=== PATIENT | female | born 1980 | race Caucasian/White ===

== ENCOUNTER 2016-10-07 11:47 | Emergency (ER) | payer OTHER ==
[~2016-10-07] VITALS: Ht 167.6 cm; Wt 104.8 kg
[~2016-10-07 11:47] MED LIST: PREN-156 PO
[2016-10-07 12:00] VITALS: BP 117/77
--- NOTE | 2016-10-07 12:05 | NUR ---
PATIENT TO ER BED 4.
--- NOTE | 2016-10-07 12:07 | NUR ---
PT CAME TO ER DUE TO RIGHT HAND PAIN X1 DAY S/P PUNCHING WALL.RT HAND IS SWOLLEN .PT STATES SHE TOOK MOTRIN BUT DID NOT HELP HER;PT AAOX 4;UNLABORED BREATHING;SKIN WARM TO TOUCH.NO ACUTE DISTRESS NOTED AT THIS TIME;DENIES ANY MEDICAL HX;DENIES CP/SOB/N/V/D.HOB ELEVATED;NEEDS ATTENDED;SAFETY PRECAUTION DONE;MD MADE AWARE OF PT'S CONDITION.
--- NOTE | 2016-10-07 12:11 | NUR ---
PT WENT TO XRAY ACCOMPANIED BY MEDIA MANAGER.
--- NOTE | 2016-10-07 12:28 | NUR ---
DR VIZCARRA AT BEDSIDE
[2016-10-07 13:00] VITALS: BP 110/70
== END 2016-10-07 13:00 | disposition home or self-care (01) ==
LOC: MED 11:47
DX: S62.316A Displaced fracture of base of fifth metacarpal bone, right hand, initial encounter for closed fracture (principal); W22.01XA Walked into wall, initial encounter; Y93.89 Activity, other specified; Y92.89 Other specified places as the place of occurrence of the external cause; Y99.8 Other external cause status
CPT/HCPCS: 29125; 73130; 99284; Q0092

== ENCOUNTER 2017-10-15 19:50 | Observation (INO) | payer OTHER ==
[~2017-10-15] VITALS: Ht 165.1 cm; Wt 104.3 kg
[2017-10-15] MEDS ORDERED: NALBUPHINE 10 MG/ML AMP IM SCH (20:30)
[2017-10-15] MEDS ORDERED: cefTRIAXone 1,000 MG in LIDOCAINE MPF 1% - **ER/OR** 2.1 ML IM SCH (20:30)
[2017-10-15] MEDS ORDERED: LIDOCAINE MPF 1% - **ER/OR** 5 ML ONE (20:40)
[2017-10-15] MEDS ORDERED: NALBUPHINE HYDROCHLORIDE 10 MG/ML VIAL ONE (20:40)
[2017-10-15] MEDS ORDERED: cefTRIAXone 1,000 MG VIAL ONE (20:40)
[2017-10-15 21:05] VITALS: BP 115/64
[2017-10-15] MEDS ORDERED: PREN-546 PO (21:12)
== END 2017-10-15 21:20 | disposition home or self-care (01) ==
LOC: MLD 19:50
PROVIDERS: ADMIT Obstetrics & Gynecology; ATTEND Obstetrics & Gynecology
DX: O99.89 Other specified diseases and conditions complicating pregnancy, childbirth and the puerperium (principal); M54.9 Dorsalgia, unspecified; Z3A.19 19 weeks gestation of pregnancy
CPT/HCPCS: G0378; J0696; J2001; J2300

== ENCOUNTER 2017-11-01 18:20 | Observation (INO) | payer OTHER ==
[~2017-11-01] VITALS: Ht 165.1 cm; Wt 104.8 kg
[~2017-11-01 18:20] MED LIST changes: -PREN-156 PO; +PREN-546 PO
[2017-11-01 18:38] VITALS: BP 114/65
[2017-11-01] MEDS ORDERED: ACETAMINOPHEN 650 MG/20.3 ML UDC PO STA (19:44)
[2017-11-01] MEDS ORDERED: ACETAMINOPHEN 325 MG TAB ONE (19:49)
== END 2017-11-01 22:54 | disposition home or self-care (01) ==
LOC: MLD 18:20
PROVIDERS: ADMIT Obstetrics & Gynecology; ATTEND Obstetrics & Gynecology
DX: O99.89 Other specified diseases and conditions complicating pregnancy, childbirth and the puerperium (principal); M54.5 Low back pain; Z3A.23 23 weeks gestation of pregnancy
CPT/HCPCS: 81000; G0378

== ENCOUNTER 2017-12-10 12:30 | Observation (INO) | payer OTHER ==
[~2017-12-10] VITALS: Ht 167.6 cm; Wt 90.7 kg
[2017-12-10 12:59] VITALS: BP 111/66
[2017-12-10] MEDS ORDERED: cefTRIAXone 1,000 MG in LIDOCAINE MPF 1% - **ER/OR** 2.1 ML IM SCH (14:26)
== END 2017-12-10 15:15 | disposition home or self-care (01) ==
LOC: MLD 12:30
PROVIDERS: ADMIT Obstetrics & Gynecology; ATTEND Obstetrics & Gynecology
DX: O26.853 Spotting complicating pregnancy, third trimester (principal); O26.893 Other specified pregnancy related conditions, third trimester; R10.30 Lower abdominal pain, unspecified; O99.89 Other specified diseases and conditions complicating pregnancy, childbirth and the puerperium; M54.9 Dorsalgia, unspecified; Z3A.28 28 weeks gestation of pregnancy
CPT/HCPCS: 76805; 81000; 96372; G0378; J0696; J2001; Q0092

== ENCOUNTER 2018-02-18 13:48 | Inpatient (IN) | payer OTHER ==
[~2018-02-18] VITALS: Ht 167.6 cm; Wt 110.7 kg
[2018-02-18 15:32] LABS: ALBUMIN 2.1 g/dL (3.4-5.0); BILIRUBIN,DIRECT 0.1 mg/dL (0.0-0.3); TOTAL BILIRUBIN 0.3 mg/dL (0.0-1.0)
[2018-02-18] MEDS ORDERED: OXYTOCIN 20 UNITS in LACTATED RINGERS 1,000 ML IV SCH (16:57)
[2018-02-18] MEDS ORDERED: LACTATED RINGERS 1,000 ML IV SCH (16:57)
[2018-02-18] MEDS ORDERED: OXYTOCIN 10 UNITS/ML VIAL IM SCH (17:00)
[2018-02-18] MEDS ORDERED: NALBUPHINE 10 MG/ML AMP IVP PRN (17:00)
[2018-02-18] MEDS ORDERED: PROMETHAZINE 25 MG/ML VIAL IVP PRN (17:00)
[2018-02-18 17:15] LABS: HEMATOCRIT 33.9 % (36-48); HEMOGLOBIN 10.8 g/dL (12.0-16.0); MEAN CORPUSCULAR HEMOGLOBIN 27 pg (27-31); MEAN CORPUSCULAR HGB CONC 32 g/dL (33-37); MEAN CORPUSCULAR VOLUME 84.4 fL (80-94); PLATELET COUNT (AUTO) 249 K/uL (140-450); RED BLOOD CELL COUNT(AUTO) 4.02 MIL/uL (4.20-5.40); RED CELL DISTRIBUTION WIDTH 16.8 % (11.6-13.7); WHITE BLOOD COUNT (AUTO) 4.2 K/uL (4.8-10.8)
[2018-02-18 17:16] LABS: BASOPHILS % (AUTO) 0.2 % (0.0-2.0); EOSINOPHILS % (AUTO) 0.8 % (0.0-4.0); LYMPHOCYTES # (AUTO) 1.3 K/uL (2.5-16.5); MONOCYTES # (AUTO) 0.2 K/uL (0.8-1.0); MONOCYTES % (AUTO) 5.6 % (1.7-9.3); NEUTROPHILS # (AUTO) 2.6 K/uL (1.8-7.7); NEUTROPHILS % (AUTO) 62.4 % (42.2-75.2)
[2018-02-18 17:30] LABS: ANION GAP 17.9 (8-16); CARBON DIOXIDE 19.5 mmol/L (21-32); CREATININE 1.1 mg/dL (0.6-1.3); POTASSIUM 3.4 mmol/L (3.5-5.1)
[2018-02-18 17:46] LABS: TOTAL BILIRUBIN 0.3 mg/dL (0.0-1.0)
[2018-02-18] MEDS ORDERED: MISOPROSTOL 25 MCG TAB VG PRN (18:00)
[2018-02-18 18:07] VITALS: BP 119/73
[2018-02-18 18:42] LABS: BILIRUBIN,URINE NEGATIVE (NEGATIVE); BLOOD, URINE NEGATIVE (NEGATIVE); COLOR,URINE YELLOW (YELLOW); LEUKOCYTE ESTERASE ,URINE 1+ (NEGATIVE); NITRITE, URINE NEGATIVE (NEGATIVE); UGLUCOSE NEGATIVE (NEGATIVE)
[2018-02-18 19:10] LABS: APPEARANCE,URINE HAZY (CLEAR)
[2018-02-18 19:58] LABS: RBC,URINE NONE SEEN /HPF (0-5); WBC,URINE 0-5 (RARE) /HPF (0-5)
[2018-02-18] MEDS ORDERED: ROPIVACAINE 0.2%/NS PREMIX 250 ML EPI SCH (23:05)
[2018-02-18] MEDS ORDERED: ROPIVACAINE 0.2%/NS PREMIX 250 ML EPI ONE (23:20)
[2018-02-19] MEDS ORDERED: OXYTOCIN 20 UNITS/LR PREMIX 1,000 ML IV ONE (01:16)
[2018-02-19] MEDS ORDERED: OXYTOCIN 10 UNITS/ML VIAL ONE (05:40)
[2018-02-19] MEDS ORDERED: oxyCODONE/APAP 5/325 MG 1 TAB TAB PO PRN (06:25)
[2018-02-19] MEDS ORDERED: HYDROcodone/APAP 5/325 MG 1 TAB TAB PO PRN (06:25)
[2018-02-19] MEDS ORDERED: IBUPROFEN 800 MG TAB PO PRN (06:25)
[2018-02-19] MEDS ORDERED: METHYLERGONOVINE 0.2 MG/ML AMP IM PRN (06:25)
[2018-02-19] MEDS ORDERED: METHYLERGONOVINE 0.2 MG TAB PO PRN (06:25)
[2018-02-19] MEDS ORDERED: MEASLES, MUMPS, AND RUBELLA 1 VIAL SQVAC PRN (06:25)
[2018-02-19] MEDS ORDERED: TEMAZEPAM 15 MG CAP PO PRN (06:25)
[2018-02-19] MEDS ORDERED: OXYTOCIN 10 UNITS/ML VIAL IM PRN (06:25)
--- NOTE | 2018-02-19 10:56 | NUR ---
PATIENT HAS BEEN SCREENED AND CATEGORIZED LOW NUTRITION RISK. PATIENT WILL BE SEEN WITHIN 7 DAYS OF ADMISSION. 02/25/[address]
[2018-02-19] MEDS ORDERED: DOCUSATE SOD/SENNA 50/8.6 MG 1 TAB PO SCH (21:00)
[2018-02-20 06:20] LABS: HEMATOCRIT 35.8 % (36-48); HEMOGLOBIN 11.6 g/dL (12.0-16.0)
[2018-02-20] MEDS ORDERED: DOCUSATE SOD/SENNA 50/8.6 MG 1 TAB PO SCH (21:00)
== END 2018-02-20 16:45 | disposition home or self-care (01) | DRG 560 ==
LOC: MLD 13:48 → OBSVTOIN 16:46 → MLD 20:43 → MFCC 02-19 09:47
PROVIDERS: ADMIT Obstetrics & Gynecology; ATTEND Obstetrics & Gynecology
PROC: 10E0XZZ Delivery of Products of Conception, External Approach (ICD-10-PCS; principal; 2018-02-19)
PROC: 3E0R3BZ Introduction of Anesthetic Agent into Spinal Canal, Percutaneous Approach (ICD-10-PCS; 2018-02-19)
PROC: 00HU33Z Insertion of Infusion Device into Spinal Canal, Percutaneous Approach (ICD-10-PCS; 2018-02-19)
DX: O99.214 Obesity complicating childbirth (principal); E66.01 Morbid (severe) obesity due to excess calories; Z68.39 Body mass index [BMI] 39.0-39.9, adult; Z3A.37 37 weeks gestation of pregnancy; Z37.0 Single live birth
CPT/HCPCS: G0378 ×3; 36415; 51702; 59025; 59200; 59409; 76819; 80053; 80076; 81001; 85018; 85025; 86592; 86886; 86900; 86901; 87086; J2590; J2795; J7120; Q0092

== ENCOUNTER 2018-07-26 13:52 | Emergency (ER) | payer SELFPAY ==
[~2018-07-26] VITALS: Ht 167.6 cm; Wt 97.7 kg
[2018-07-26 14:05] VITALS: BP 121/75
--- NOTE | 2018-07-26 14:15 | NUR ---
PT. BIB SELF WITH C/O LOWER ABDOMINAL CRAMPING PAIN, HEAD ACHE, NAUSEA 01/29 X 2 WKS; - VAG BLEED, DIZZINESS; PER PT - PREG TEST TAKEN YESTERDAY; LMP 06/19/2018; A1 L:7. PT. STATES " I HAVE BEEN HAVING THIS CRAMPING SO MY BOSS TOLD ME TODAY, THAT I HAVE TO GET CHECKED". ER MD MADE AWARE. RR EVEN AND UNLABORED. SAFETY PRECAUTIONS IMPLEMENTED. WILL CONTINUE TO MONITOR.
--- NOTE | 2018-07-26 14:51 | NUR ---
Patient being evaluated by physician at bedside.
--- NOTE | 2018-07-26 15:22 | NUR ---
PT. RESTING COMFORTABLY IN BED, VSS. WILL CONTINUE TO MONITOR.
--- NOTE | 2018-07-26 15:41 | NUR ---
ULTRASOUND AT BEDSIDE AT THIS TIME
[2018-07-26 15:46] LABS: APPEARANCE,URINE TURBID (CLEAR); BILIRUBIN,URINE NEGATIVE (NEGATIVE); BLOOD, URINE NEGATIVE (NEGATIVE); COLOR,URINE YELLOW (YELLOW); LEUKOCYTE ESTERASE ,URINE 2+ (NEGATIVE); NITRITE, URINE NEGATIVE (NEGATIVE); UGLUCOSE NEGATIVE (NEGATIVE)
[2018-07-26 16:19] LABS: RBC,URINE NONE SEEN /HPF (0-5)
[2018-07-26 16:57] VITALS: BP 120/78
--- NOTE | 2018-07-26 16:57 | NUR ---
Patient discharged with v/s stable. Written and verbal after care instructions given and explained. Patient alert, oriented and verbalized understanding of instructions. Carried with steady gait. All questions addressed prior to discharge. ID band removed. Patient advised to follow up with PMD. Rx of CEPHALAZIN 500MG, DIFLUCAN 150MG given. Patient educated on indication of medication including possible reaction and side effects. Opportunity to ask questions provided and answered.
== END 2018-07-26 16:57 | disposition home or self-care (01) ==
LOC: MED 13:52
DX: N39.0 Urinary tract infection, site not specified (principal); N83.202 Unspecified ovarian cyst, left side
CPT/HCPCS: 76830; 81001; 81025; 87086; 99284; Q0092

== ENCOUNTER 2018-12-20 23:24 | Emergency (ER) | payer OTHER ==
[~2018-12-20] VITALS: Ht 167.6 cm; Wt 86.2 kg
[2018-12-20 23:27] VITALS: BP 141/87
--- NOTE | 2018-12-20 23:27 | NUR ---
Pt taken to bed 12.
--- NOTE | 2018-12-20 23:42 | NUR ---
DR. GAGE BEDSIDE EVALUATING PT
[2018-12-20] MEDS ORDERED: KETOROLAC 60 MG/2 ML VIAL IM ONE (23:50)
--- NOTE | 2018-12-20 23:59 | NUR ---
38 Y/O F W/C/O R SHOULDER PAIN S/P BEING HIS WITH A WATER BOTTLE AT 1830 TONIGHT. PT ALSO REPORTS BROWN VAGINAL DISCHARGE TODAY. +CMS. FULL ROM. CAP REFILL<3. -ECCHYMOSIS. PT DENIES N/V/D; SKIN IS INTACT, PINK/WARM/DRY; AAOX4, PERRL, WITH EVEN AND STEADY GAIT; PT DENIES ANY FEVER, CP, SOB, OR COUGH AT THIS TIME; PT STATES 7/10 PAIN AT THIS TIME; VSS; PATIENT POSITIONED FOR COMFORT; HOB ELEVATED; BEDRAILS UP X2; BED DOWN.
[2018-12-21 00:28] VITALS: BP 135/85
== END 2018-12-21 00:29 | disposition home or self-care (01) ==
LOC: MED 23:24
DX: M25.511 Pain in right shoulder (principal); M54.5 Low back pain; N93.9 Abnormal uterine and vaginal bleeding, unspecified; W22.8XXA Striking against or struck by other objects, initial encounter; Y93.89 Activity, other specified; Y92.89 Other specified places as the place of occurrence of the external cause; Y99.8 Other external cause status
CPT/HCPCS: 81002; 81025; 96372; 99283; J1885

== ENCOUNTER 2019-04-06 01:01 | Emergency (ER) | payer OTHER ==
[~2019-04-06] VITALS: Ht 165.1 cm; Wt 85.7 kg
[2019-04-06 01:05] VITALS: BP 130/80
--- NOTE | 2019-04-06 01:08 | NUR ---
TO LOBBY A/W BED AMBULATORY
--- NOTE | 2019-04-06 03:15 | NUR ---
PT AMBULATED TO BED 12 WITH STEADY GAIT.
--- NOTE | 2019-04-06 03:20 | NUR ---
38 YO F C/O 8/10 THROBBING LOWER RIGHT LEG PAIN X 2 WEEKS S/P MECHANICAL FALL. PT STATES SHE SLIPPED AND FELL WHILE WALKING ON ROCKS IN A [place]. PT STATES ENTIRE LEG WAS BRUISED BUT HAS HEALED SINCE. LOWER RIGHT LEG HOWEVER HAS REDNESS, SWELLING AND NO SIGN OF HEALING. PT STATES SHE HAS BEEN TAKING MOTRIN WITH LITTLE RELIEF. DENIES FEVER, N/V. -- PT AWAKE, A/O X 4, CALM, COOPERATIVE. BEHAVIOR AGE APPROPRIATE. -- SKIN PINK, WARM, DRY. BREATHING EVEN, UNLABORED. PMH-- DENIES
--- NOTE | 2019-04-06 05:43 | NUR ---
Dr. Schmid evaluating patient at bedside.
[2019-04-06 06:06] VITALS: BP 122/75
--- NOTE | 2019-04-06 06:06 | NUR ---
Patient discharged with v/s stable. Written and verbal after care instructions given and explained. Patient alert, oriented and verbalized understanding of instructions. Ambulatory with steady gait. All questions addressed prior to discharge. ID band removed. Patient advised to follow up with PMD. Rx of [place], Motrin, Prednisone, Keflex given. Patient educated on indication of medication including possible reaction and side effects. Opportunity to ask questions provided and answered.
== END 2019-04-06 06:06 | disposition home or self-care (01) ==
LOC: MED 01:01
DX: L03.115 Cellulitis of right lower limb (principal)
CPT/HCPCS: 99283

== ENCOUNTER 2019-04-15 07:50 | Emergency (ER) | payer OTHER ==
[~2019-04-15] VITALS: Ht 165.1 cm; Wt 63.5 kg
--- NOTE | 2019-04-15 07:54 | NUR ---
Patient ambulated to bed 12. RN evaluating patient at bedside.
[2019-04-15 08:01] VITALS: BP 122/77
--- NOTE | 2019-04-15 08:01 | NUR ---
PT BIB SELF C/O LT LEG PAIN X1 WEEK S/P MECHANICAL FALL. PT REPORTS STINGING THROBING PAIN AT 7/10 THAT INCREASES IN DEPENDENT POSITION, ALLEVIAITED W/ ELEVATION. PT REPORTS TRIPPING OVER A ROCK AND LANDING ON HER [place] ON ANOTHER ROCK. PT SEEN HERE ON 04/05/19, RECIEVE ABX AND IBUPROFEN. VSS. ER TO SEE PT. MEDHX:DENIES RX:DENIES
[2019-04-15 09:11] VITALS: BP 123/68
--- NOTE | 2019-04-15 09:11 | NUR ---
Patient discharged with v/s stable. Written and verbal after care instructions given and explained. Patient alert, oriented and verbalized understanding of instructions. Ambulatory with steady gait. All questions addressed prior to discharge. ID band removed. Patient advised to follow up with PMD. Rx of BACTRIM, DIFLUCAN, AND ZOFRAN given. Patient educated on indication of medication including possible reaction and side effects. Opportunity to ask questions provided and answered.
== END 2019-04-15 09:11 | disposition home or self-care (01) ==
LOC: MED 07:50
DX: S80.11XA Contusion of right lower leg, initial encounter (principal); L03.115 Cellulitis of right lower limb; W22.8XXA Striking against or struck by other objects, initial encounter; Y93.89 Activity, other specified; Y92.89 Other specified places as the place of occurrence of the external cause; Y99.8 Other external cause status
CPT/HCPCS: 73590; 99283; Q0092

== ENCOUNTER 2019-04-19 22:55 | Inpatient (IN) | payer OTHER ==
[~2019-04-19] VITALS: Ht 165.1 cm; Wt 88.9 kg
[2019-04-19 22:58] VITALS: BP 121/73
--- NOTE | 2019-04-19 23:04 | NUR ---
PT AMBULATED TO BED #5
--- NOTE | 2019-04-19 23:11 | NUR ---
PATIENT PRESENTS TO ED WITH RT LEG PAIN X1 MONTH. [place] AND FELL ON A R[place]. INCREASED PAIN AND ERYTHEMA TODAY. PT WAS SEEN IN ER ON SUNDAY, PT GIVEN ATB AND DECREASE IN SYMPTOMS. NKA -PMH, DENIES N/V/D; SKIN IS PINK/WARM/DRY; AAOX4 WITH EVEN AND STEADY GAIT; LUNGS CLEAR BL; HR EVEN AND REGULAR; PT DENIES ANY FEVER, CP, SOB, OR COUGH AT THIS TIME; PATIENT STATES PAIN OF 5/10 AT THIS TIME; VSS; PATIENT POSITIONED FOR COMFORT; HOB ELEVATED; BEDRAILS UP X2; BED DOWN. ER MD MADE AWARE OF PT STATUS.
[2019-04-19] MEDS ORDERED: VANCOMYCIN 1,000 MG in DEXTROSE 5% 250 ML IV ONE (23:25)
[2019-04-19] MEDS ORDERED: VANCOMYCIN 1,000 MG VIAL ONE (23:29)
[2019-04-19 23:44] LABS: BASOPHILS % (AUTO) 0.6 % (0.0-2.0); EOSINOPHILS # (AUTO) 0.1 K/uL (0-0.4); EOSINOPHILS % (AUTO) 1.3 % (0.0-4.0); HEMATOCRIT 34.7 % (36-48); HEMOGLOBIN 10.8 g/dL (12.0-16.0); LYMPHOCYTES # (AUTO) 2.2 K/uL (2.5-16.5); LYMPHOCYTES % (AUTO) 39.8 % (20.5-51.1); MEAN CORPUSCULAR HEMOGLOBIN 25 pg (27-31); MEAN CORPUSCULAR HGB CONC 31 g/dL (33-37); MEAN CORPUSCULAR VOLUME 78.7 fL (80-94); MONOCYTES # (AUTO) 0.4 K/uL (0.8-1.0); MONOCYTES % (AUTO) 7.4 % (1.7-9.3); NEUTROPHILS # (AUTO) 2.8 K/uL (1.8-7.7); NEUTROPHILS % (AUTO) 50.9 % (42.2-75.2); PLATELET COUNT (AUTO) 369 K/uL (140-450); RED BLOOD CELL COUNT(AUTO) 4.42 MIL/uL (4.20-5.40); WHITE BLOOD COUNT (AUTO) 5.6 K/uL (4.8-10.8)
[2019-04-19 23:53] LABS: APPEARANCE,URINE CLEAR (CLEAR); BILIRUBIN,URINE NEGATIVE (NEGATIVE); BLOOD, URINE 3+ (NEGATIVE); COLOR,URINE YELLOW (YELLOW); LEUKOCYTE ESTERASE ,URINE NEGATIVE (NEGATIVE); NITRITE, URINE NEGATIVE (NEGATIVE); UGLUCOSE NEGATIVE (NEGATIVE)
[2019-04-20 00:11] LABS: ANION GAP 13.7 (8-16); CARBON DIOXIDE 25.8 mmol/L (21-32); CREATININE 0.9 mg/dL (0.6-1.3); POTASSIUM 3.5 mmol/L (3.5-5.1)
[2019-04-20 00:12] LABS: RBC,URINE TOO NUMEROUS TO COUN /HPF (0-5); WBC,URINE 0-5 /HPF (0-5)
[2019-04-20 00:20] LABS: ALBUMIN 3.4 g/dL (3.4-5.0); TOTAL BILIRUBIN 0.2 mg/dL (0.0-1.0)
--- NOTE | 2019-04-20 04:30 | NUR ---
PT ARRIVED ON UNIT VIA W/C ESCORTED TO ROOM 120 BY TANVIR BUDDHIST MONK NURSE, PT AMBULATED WITH A STEADY GAIT TO BED B. REPORT GIVEN BY TANVIR RN NURSE AT BEDSIDE FOR CONTINUITY OF CARE. PT IS AOX4 SKIN INTACT EXCEPT FOR 2 DARK REDDENED CIRCLES ON RIGHT LOWER LEG BOTH MEASURING 3CM X 3CM WITH NO DEPTH OR OPENING IN THE SKIN NO DRAINAGE NOTED. V/S FOLLOWS T 97.8 P 60 R 18 B/P- 112/64 02 95% ON ROOM AIR. PT ORIENTED ROOM AND CALL [employer] IN REACH. PT DENIES PAIN AT THIS TIME, WILL CONTACT INTERIOR DECORATOR PAPERHANGING MD FOR ADMISSION ORDERS.
--- NOTE | 2019-04-20 04:42 | NUR ---
Pt report given to MESERET CARVER. Transfer of care at this time.
--- NOTE | 2019-04-20 05:45 | NUR ---
PAGED [employer] SUPERINTENDENT PULMONARY, MD CLIFTON WAS PAGED, AWAITING CALL BACK FROM [facility] FOR ADMISSION ORDERS.
--- NOTE | 2019-04-20 06:32 | NUR ---
CALLED BACK [employer] DIRECTOR PULMONARY SERVICE, TO HAVE MD CLIFTON PAGED A 2ND TIME, AWAITING RETURN CALL.
[2019-04-20 06:44] VITALS: BP 115/67
[2019-04-20] MEDS ORDERED: VANCOMYCIN PER PHARMACY MC PRN (06:55)
[2019-04-20] MEDS ORDERED: HYDROcodone/APAP 5/325 MG 1 TAB TAB PO PRN (06:55)
--- NOTE | 2019-04-20 07:05 | NUR ---
RECEIVED REPORT FROM WHIZZER HAND NURSE. PATIENT IS SLEEPING. ON ROOM AIR. WILL CONTINUE WITH CURRENT PLAN OF CARE.
--- NOTE | 2019-04-20 07:05 | NUR ---
MD CLIFTON CALED BACK WITH NEW ORDERS NOTED. GAVE REPORT TO ERIK CARL DAYSHIFT NURSE AT BEDSIDE PT IN STABLE CONDITION.
--- NOTE | 2019-04-20 09:30 | NUR ---
PATIENT IS IN BED SLEEPING. NO COMPLAINTS AT THIS TIME.
--- NOTE | 2019-04-20 10:30 | NUR ---
BEGAN INFUSION OF VANCOMYCIN.
[2019-04-20] MEDS: VANCOMYCIN 1,000 MG in DEXTROSE 5% 250 ML IV SCH (11:49)
--- NOTE | 2019-04-20 15:09 | NUR ---
PATIENTS INFUSION OF VANCOMYCIN IS FINISHED. PATIENT AMBULATED TO RESTROOM. NO COMPLAINTS AT THIS TIME. WILL CONTINUE TO MONITOR.
[2019-04-20 16:00] VITALS: BP 98/62
--- NOTE | 2019-04-20 18:35 | NUR ---
PATIENT IS RESTING IN BED, AWAKE. WILL ENDORSE TO TUNA PURSE SEINER NURSE FOR CONTINUITY OF CARE.
--- NOTE | 2019-04-20 19:05 | NUR ---
RECD. RESTING IN BED, AWAKE, A/OX4. RESPIRATION EVEN AND UNLABORED. IV SALINE LOCK AT THE RIGHT AC G20. AMBULATING INDEPENDENTLY. RIGHT LOWER EXTREMITY WITH CELLULITIS, TWO ROUND AREAS, SOFT AND SLIGHTLY TENDER TO TOUCH, LIGHT PURPLISH COLOR. PLAN OF CARE FOR THE SHIFT DISCUSSED. VERBALIZED UNDERSTANDING. DENIES PAIN 0/10.
--- NOTE | 2019-04-20 21:30 | NUR ---
NO BM SINCE SUNDAY, PRUNE JUICE GIVEN. ENCOURAGED TO DRINK MORE FLUIDS.
--- NOTE | 2019-04-20 22:00 | NUR ---
IV INFILTRATED, PIPER NEW IV LINE.
[2019-04-21] VITALS: BP 109/71
--- NOTE | 2019-04-21 | NUR ---
OFFERED PAIN MEDICATION BUT REFUSED, STATED PAIN IS JUST VERY LITTLE.
--- NOTE | 2019-04-21 00:50 | NUR ---
NEW IV LINE INSERTED BY MESERET CLIFFORD AT THE RIGHT HAND G24.
[2019-04-21] MEDS: VANCOMYCIN 1,000 MG in DEXTROSE 5% 250 ML IV SCH ×2 (00:58→13:04)
--- NOTE | 2019-04-21 01:55 | NUR ---
TOLERATED WELL VANCOMYCIN IVPB.
--- NOTE | 2019-04-21 04:00 | NUR ---
Patient's Plan of Care was discussed and reviewed with PRIYA: FRANCINE
--- NOTE | 2019-04-21 06:47 | NUR ---
CONDITION REMAIN STABLE. NO COMPLAINT OF PAIN DURING SHIFT. WILL ENDORSED TO AM NURSE FOR CONTINUITY OF CARE.
--- NOTE | 2019-04-21 07:15 | NUR ---
RECEIVED REPORT ON PATIENT. PATIENT IS SLEEPING. ON ROOM AIR. IV TO RIGHT HAND 24G. FULL CODE, NKA, AMBULATORY. WILL CONTINUE WITH THE PLAN OF CARE.
[2019-04-21 08:00] VITALS: BP 115/74
--- NOTE | 2019-04-21 08:29 | NUR ---
PATIENT HAS BEEN SCREENED AND CATEGORIZED LOW NUTRITION RISK. PATIENT WILL BE SEEN WITHIN 7 DAYS OF ADMISSION. 04/26/[address]
[2019-04-21 10:10] LABS: BASOPHILS % (AUTO) 0.5 % (0.0-2.0); EOSINOPHILS # (AUTO) 0.1 K/uL (0-0.4); EOSINOPHILS % (AUTO) 2.3 % (0.0-4.0); HEMATOCRIT 36.4 % (36-48); HEMOGLOBIN 11.3 g/dL (12.0-16.0); LYMPHOCYTES # (AUTO) 1.5 K/uL (2.5-16.5); LYMPHOCYTES % (AUTO) 42.2 % (20.5-51.1); MEAN CORPUSCULAR HEMOGLOBIN 25 pg (27-31); MEAN CORPUSCULAR HGB CONC 31 g/dL (33-37); MONOCYTES # (AUTO) 0.3 K/uL (0.8-1.0); MONOCYTES % (AUTO) 7.5 % (1.7-9.3); NEUTROPHILS # (AUTO) 1.6 K/uL (1.8-7.7); NEUTROPHILS % (AUTO) 47.5 % (42.2-75.2); PLATELET COUNT (AUTO) 358 K/uL (140-450); RED CELL DISTRIBUTION WIDTH 17.6 % (11.6-13.7); WHITE BLOOD COUNT (AUTO) 3.5 K/uL (4.8-10.8)
[2019-04-21 11:00] LABS: ALBUMIN 3.3 g/dL (3.4-5.0); ANION GAP 15.9 (8-16); CARBON DIOXIDE 25.6 mmol/L (21-32); CREATININE 0.9 mg/dL (0.6-1.3); POTASSIUM 3.5 mmol/L (3.5-5.1); TOTAL BILIRUBIN 0.2 mg/dL (0.0-1.0)
--- NOTE | 2019-04-21 11:36 | NUR ---
CONTACTED PATIENT'S PCP MARIAMA VILLEGAS AT [phone], ABLE TO SPEAK TO [place] REGARDING POST DC APPOINTMENT. HE STATED THAT IT IS A WALK IN CLINIC AND THEY CAN ALWAYS COME IN [place] AND CLINIC OPENS AT 0800. WILL INFORM THE PATIENT. Addendum: 04/21/19 at 1138 by Tatiana Penaloza CM INFORMED PATIENT.
[2019-04-21] MEDS ORDERED: BUPIVACAINE-MPF/EPI 0.25% 30 ML VIAL INJ ONE (11:50)
--- NOTE | 2019-04-21 12:00 | NUR ---
PATIENT IS OFF UNIT FOR OR I&D WITH DR. TIJERINA.
[2019-04-21] MEDS: LIDOCAINE 1% 500 MG/50 ML VIAL ONE ×2 (12:02→12:59)
[2019-04-21] MEDS: MIDAZOLAM 2 MG/2 ML VIAL ONE ×2 (12:02→12:27)
[2019-04-21] MEDS: fentaNYL 0.05 MG/ML VIAL ONE ×2 (12:02→12:27)
[2019-04-21] MEDS: BUPIVACAINE-MPF/EPI 0.5% 30 ML VIAL INJ ONE ×2 (12:02→12:58)
--- NOTE | 2019-04-21 12:42 | NUR ---
BEGAN DISCHARGE PAPERWORK. PER DR TIJERINA AND DR MONTALVO, PATIENT CAN BE DISCHARGED AFTER I&D PROCEDURE.
--- NOTE | 2019-04-21 12:55 | NUR ---
PATIENT IS BACK ON UNIT FROM OR. VITAL SIGNS UPON RETURNING ARE TEMP 97.6, O2 99% RA, SC 61, BP 96/60. WILL CONTINUE TO MONITOR.
[2019-04-21] MEDS ORDERED: CEPH250C16 PO ×4 (14:51→15:00)
[2019-04-21] MEDS ORDERED: SULF-58 PO ×2 (14:56→15:00)
--- NOTE | 2019-04-21 15:23 | NUR ---
PATIENT SIGNED DISCHARGE PAPERWORK. REMOVED PATIENTS IV LINES, BOTH CANNULAS INTACT. REINFORCED PATIENTS I&D DRESSING PER DR TIJERINA'S ORDERS.
--- NOTE | 2019-04-21 15:35 | NUR ---
AMBULATED WITH PATIENT TO [facility], PATIENT HAS BEEN DISCHARGED TO HOME. PATIENT HAD OWN VEHICLE AT ER PARKING LOT AND IS ABLE TO AMBULATE AND DRIVE HERSELF HOME. ARMBAND HAS BEEN REMOVED, ALL PERSONAL BELONGINGS TAKEN WITH PATIENT.
== END 2019-04-21 15:35 | disposition home or self-care (01) | DRG 720 ==
LOC: MED 22:55 → MTU 04-20 04:14
PROVIDERS: ADMIT Internal Medicine Pulmonary Disease; ATTEND Internal Medicine Pulmonary Disease
PROC: 0Y9H0ZZ Drainage of Right Lower Leg, Open Approach (ICD-10-PCS; principal; 2019-04-21 12:50)
DX: A41.9 Sepsis, unspecified organism (principal); L02.415 Cutaneous abscess of right lower limb; L03.115 Cellulitis of right lower limb
CPT/HCPCS: 36415; 80053; 80202; 81001; 81025; 83605; 85025; 87040; 87070; 87075; 87081; 87205; 93971; 96365; 96366; 99285; J2001; J2250; J3010; J3370; J3490; J7030; J7060; Q0092

== ENCOUNTER 2020-07-12 10:03 | Day surgery (SDC) | payer OTHER, SELFPAY ==
[~2020-07-12] VITALS: Ht 165.1 cm; Wt 99.8 kg
[~2020-07-12 10:03] MED LIST changes: +CEPH250C16 PO; -PREN-546 PO; +SULF-58 PO
[2020-07-12] MEDS ORDERED: LIDOCAINE 1% 500 MG/50 ML VIAL ONE (10:26)
[2020-07-12] MEDS ORDERED: BUPIVACAINE-MPF/EPI 0.25% 10 ML VIAL INJ ONE ×2 (11:04)
[2020-07-12] MEDS ORDERED: KETOROLAC 30 MG/ML VIAL ONE (11:20)
[2020-07-12] MEDS ORDERED: SEVOFLURANE 250 ML BTL INH ONE (11:20)
[2020-07-12] MEDS ORDERED: MEPERIDINE 50 MG/ML SYR ONE (11:20)
[2020-07-12] MEDS ORDERED: DEXAMETHASONE 4 MG/ML VIAL ONE (11:20)
[2020-07-12] MEDS ORDERED: SUCCINYLCHOLINE CHLORIDE 200 MG/10 ML VIAL IVP ONE (11:20)
[2020-07-12] MEDS ORDERED: ROCURONIUM 50 MG/5 ML VIAL IV ONE (11:20)
[2020-07-12] MEDS ORDERED: PROPOFOL 200 MG/20 ML VIAL IV ONE (11:20)
[2020-07-12] MEDS ORDERED: SUGAMMADEX SODIUM 200 MG/2 ML VIAL IV ONE (11:20)
[2020-07-12] MEDS ORDERED: MEPERIDINE 25 MG/ML SYR IVP PRN (11:55)
[2020-07-12] MEDS ORDERED: LACTATED RINGERS 1,000 ML IV SCH (11:55)
[2020-07-12] MEDS ORDERED: diphenhydrAMINE 50 MG/ML VIAL IVP PRN (11:55)
[2020-07-12] MEDS ORDERED: ONDANSETRON 4 MG/2 ML VIAL IVP PRN (11:55)
[2020-07-12] MEDS ORDERED: MORPHINE SULFATE 2 MG/ML SYR IVP PRN (12:45)
[2020-07-12] MEDS ORDERED: MORPHINE SULFATE 4 MG/ML SYR IV PRN (12:45)
[2020-07-12] MEDS ORDERED: HYDROmorphone 1 MG/ML AMP IVP PRN (12:45)
[2020-07-12] MEDS ORDERED: ONDANSETRON 4 MG/2 ML VIAL IV PRN (12:45)
[2020-07-12] MEDS ORDERED: HYDROcodone/APAP 5/325 MG 1 TAB TAB PO PRN (12:45)
[2020-07-12] MEDS ORDERED: HYDROmorphone PFS 2 MG/ML SYR ONE (12:59)
[2020-07-12] MEDS: HYDROmorphone 1 MG/ML AMP IVP PRN ×4 (13:00→13:34)
== END 2020-07-12 15:00 | disposition home or self-care (01) ==
LOC: MDS 10:03 → MFCC 10:18 → MDS 15:00
PROVIDERS: ATTEND Surgery
DX: K80.10 Calculus of gallbladder with chronic cholecystitis without obstruction (principal); Z20.828 Contact with and (suspected) exposure to other viral communicable diseases
CPT/HCPCS: 36415; 47562; 71045; 82374; 86886; 86900; 86901; J0330; J0690; J1100; J1170; J1885; J2001; J2175; J2704; J3490; J7030; J7060; U0003